=== PATIENT | male | born 1980 | race American Indian/Alaskan Native ===

== ENCOUNTER 2021-01-24 14:25 | Emergency (ER) | payer MEDICAID, OTHER ==
[2021-01-24 15:30] VITALS: BP 111/84; PULSE 102
== END 2021-01-24 16:00 | disposition left against medical advice (07) ==
LOC: JP.ED 14:25
DX: Z53.21 Procedure and treatment not carried out due to patient leaving prior to being seen by health care provider (principal)

== ENCOUNTER 2021-08-24 12:14 | Emergency (ER) | payer SELFPAY ==
[2021-08-24 12:24] VITALS: BP 122/85; PULSE 46
[2021-08-24] MEDS ORDERED: Ketorolac 30 MG/ML SDV IVPUSH ONE (13:10)
[2021-08-24] MEDS ORDERED: Tamsulosin 0.4 MG Cap.ER PO ONE (13:33)
[2021-08-24] MEDS ORDERED: HYDROmorphone 1 MG/ML Syringe IVPUSH ONE (14:13)
[2021-08-24] MEDS ORDERED: HYDROmorphone 0.5 MG/0.5 ML Syringe IVPUSH ONE (15:25)
== END 2021-08-24 15:45 | disposition home or self-care (01) ==
LOC: JP.ED 12:14
DX: N13.2 Hydronephrosis with renal and ureteral calculous obstruction (principal)
CPT/HCPCS: 36415; 74176; 74176-26; 80053; 81001; 85027; 96374; 96375; 96376; 99282; 99285-25; A9270-GY; J1170; J1885